=== PATIENT | female | born 1990 | race Caucasian/White ===

== ENCOUNTER → 2021-02-10 | Outpatient (CLI) | payer BC | LOC: KOH-I 08:26 | DX: J01.81 Other acute recurrent sinusitis (principal); J32.0 Chronic maxillary sinusitis; J34.2 Deviated nasal septum | CPT/HCPCS: 70486 ==

== ENCOUNTER → 2021-03-04 | Outpatient (CLI) | payer BC | LOC: KOH-I 11:15 | DX: G44.89 Other headache syndrome (principal); G43.009 Migraine without aura, not intractable, without status migrainosus; M54.81 Occipital neuralgia; R20.2 Paresthesia of skin; M54.2 Cervicalgia; M40.50 Lordosis, unspecified, site unspecified | CPT/HCPCS: 72040 ==

== ENCOUNTER → 2021-03-18 | Outpatient (CLI) | payer BC | LOC: EMI 13:00 | DX: G43.009 Migraine without aura, not intractable, without status migrainosus (principal); G44.89 Other headache syndrome; M54.81 Occipital neuralgia; R20.2 Paresthesia of skin | CPT/HCPCS: 70551 ==